=== PATIENT | female | born 1975 | race African-American/Black ===

== ENCOUNTER → 2025-03-19 | Day surgery (SDC) | payer BC ==
[2025-03-15 15:46] LABS: BASOPHILS % 0.6 % (0.0-1.0); EOSINOPHILS % 1.3 % (0.0-6.0); LYMPHOCYTES % 28.2 % (18.0-39.1); MONOCYTES % 8.0 % (4.4-11.3); NEUTROPHILS % 61.5 % (38.7-80.0); RED CELL DISTRIBUTION WIDTH 14.0 % (11.7-14.4)
[2025-03-15 16:17] LABS: EST GLOMERULAR FILTRATION RATE 86.0 ML/MIN (>=60)
[~2025-03-19] MED LIST: ACETAMINOPHEN 1000 MG/100 ML 100 ML IV ONE; DEXAMETHASONE SOD PHOS INJ 4 MG/ML SDV ONE; DIOVAN HCT 3201 EACH PO; FENTANYL CITRATE/PF 100MCG/2 ML INJ ONE; KETOROLAC TROMETHAMINE 30 MG/ML VIAL ONE; LIDOCAINE HCL 2% LOCAL INJ 5 ML SDV VIAL INJ ONE; ONDANSETRON HCL INJ 2MG/ML 2ML 2 MG/ML VIAL ONE; PANTOPRAZOLE SO40 MG PO; PROPOFOL IV EMULSION 10 MG/ML 20 ML VIAL ONE; ROCURONIUM BROMIDE 0 ML IV ONE; ROCURONIUM BROMIDE 1 ML IV ONE; SEVOFLURANE INHAL SOLN 250 ML PEN BTL ONE; SUCCINYLCHOLINE CHLORIDE 20 MG/ML 10ML VIAL ONE; SUGAMMADEX SODIUM 200 MG/2 ML VIAL IV ONE; [UNRECOGNIZED DRUG - OTHER] PO
[2025-03-19] MEDS: CEFAZOLIN SODIUM 2 GM ONE (06:18)
[2025-03-19] MEDS: LACTATED RINGER'S 1,000 ML ONE (06:18)
[2025-03-19 09:45] VITALS: TEMP 97.6
[2025-03-19 10:05] VITALS: BP 153/89; PULSE 68; RESP 15; O2SAT 97
== END | disposition home or self-care (01) ==
LOC: OR 05:45
PROVIDERS: ATTEND Podiatrist Foot Surgery
DX: M67.472 Ganglion, left ankle and foot (principal); M25.775 Osteophyte, left foot; Q66.89 Other specified congenital deformities of feet; E66.01 Morbid (severe) obesity due to excess calories; I10 Essential (primary) hypertension; K21.9 Gastro-esophageal reflux disease without esophagitis; Z88.8 Allergy status to other drugs, medicaments and biological substances; Z01.810 Encounter for preprocedural cardiovascular examination; Z01.812 Encounter for preprocedural laboratory examination; Z79.899 Other long term (current) drug therapy
CPT/HCPCS: 28116; 36415; 80048; 85025; 88304; 88311; 93005; J0131; J0330; J0690; J1100; J1885; J2003; J2405; J2704; J3010; J7121; V2790